=== PATIENT | male | born 1945 | race Caucasian/White ===

== ENCOUNTER 2022-02-03 20:08 | Emergency (ER) | payer OTHER ==
[2022-02-03] MEDS ORDERED: HYDROCODONE/APAP 7.5/325 MG TAB ONE (22:45)
--- NOTE | 2022-02-03 23:54 | ER ---
Nurse's Notes [facility] Name: Sean Pedro Age: 76 yrs Sex: Male : 1945 Arrival Date: 02/03/2022 Time: 20:14 Bed 20 Private MD: Diagnosis: Pain in right knee Presentation: 02/03 20:48 Chief complaint: Patient states: Pt reports he stepped up into his tractor, twisted his kb3 right knee and felt a popping sensation at approximately 1900 tonight. PT reports he is unable to bear weight. Coronavirus screen: Vaccine status: Patient reports being unvaccinated. Ebola Screen: Patient negative for fever greater than or equal to 101.5 degrees Fahrenheit, and additional compatible Ebola Virus Disease symptoms Patient denies exposure to infectious person. Patient denies travel to an Ebola-affected area in the 21 days before illness onset. No symptoms or risks identified at this time. Initial Sepsis Screen: Does the patient meet any 2 criteria? No. Patient's initial sepsis screen is negative. Does the patient have a suspected source of infection? No. Patient's initial sepsis screen is negative. Risk Assessment: Do you want to hurt yourself or someone else? Patient reports no desire to harm self or others. Onset of symptoms was February 03, 2022 at 19:00. 20:48 Method Of Arrival: Wheelchair kb3 20:48 Acuity: BRODIE 4 kb3 Triage Assessment: 20:51 General: Appears in no apparent distress. uncomfortable, Behavior is calm, cooperative. kb3 Pain: Complains of pain in posterior aspect of right knee. Historical: - Allergies: 20:51 No Known Allergies; kb3 - Immunization history:: Adult Immunizations up to date, Client reports having NOT received the Covid vaccine. Last tetanus immunization: up to date. - Social history:: Smoking status: Patient denies any tobacco usage or history of. Screenin/23 00:19 Abuse screen: Denies threats or abuse. Nutritional screening: No deficits noted. ll3 Tuberculosis screening: No symptoms or risk factors identified. Fall Risk None identified. Assessment: 02/03 22:30 General: Appears uncomfortable, Behavior is calm, cooperative. Pain: Complains of pain ll3 in posterior aspect of right knee Pain currently is 9 out of 10 on a pain scale. Neuro: Level of Consciousness is awake, alert, obeys commands, Oriented to person, place, time, situation. Respiratory: Respiratory effort is even, unlabored, Respiratory pattern is regular, symmetrical. Derm: Skin is pink, warm \T\ dry. Musculoskeletal: Reports pain in posterior aspect of right knee. 23:50 Reassessment: No changes from previously documented assessment. Patient and/or family ll3 updated on plan of care and expected duration. Pain level reassessed. Patient is alert, oriented x 3, equal unlabored respirations, skin warm/dry/pink. Vital Signs: 20:48 BP 116 / 74; Pulse 59; Resp 19; Temp 98; Pulse Ox 98% ; Weight 110.22 kg; Height 5 ft. kb3 10 in. (177.80 cm); Pain 10/10; 23:50 BP 111 / 58; Pulse 58; Resp 17; Pulse Ox 98% ; ll3 23:50 BP 111 / 58; Pulse 56; Resp 18; Pulse Ox 98% on R/A; ll3 20:48 Body Mass Index 34.87 (110.22 kg, 177.80 cm) kb3 ED Course: 20:14 Patient arrived in ED. ja2 20:51 Triage completed. kb3 20:51 Arm band placed on right wrist. kb3 21:04 Perez Vergara PA is PHCP. cp 21:04 Perez Herman MD is Attending Physician. cp 22:38 Kwasi Muñoz, FELISA is Primary Nurse. ll3 23:00 XRAY Pelvis In Process Unspecified. EDMS 23:01 XRAY Femur RIGHT In Process Unspecified. EDMS 23:01 XRAY Tib Fib RIGHT In Process Unspecified. EDMS 23:53 Haseeb Da Silva MD is Referral Physician. cp 02/04 00:19 Patient has correct armband on for positive identification. Placed in gown. Bed in low ll3 position. Call light in reach. Side rails up X 1. Adult w/ patient. 00:19 No provider procedures requiring assistance completed. Patient did not have IV access ll3 during this emergency room visit. Administered Medications: 02/03 22:38 Drug: Hydrocodone-Acetaminophen (7.5 mg-325 mg) 1 tabs Route: PO; ll3 23:50 Follow up: BP 111 / 58; Pulse 58 bpm; Resp 17 bpm; Pulse Ox 98% ; Response: No adverse ll3 reaction; Pain is decreased Medication: 02/04 00:20 VIS not applicable for this client. ll3 Outcome: 02/03 23:53 Discharge ordered by . catia 02/04 00:18 Patient left the ED. mw2 00:19 Discharged to home via wheelchair, with crutches. ll3 00:19 Condition: stable 00:19 Discharge instructions given to patient, family, Instructed on discharge instructions, follow up and referral plans. medication usage, Demonstrated understanding of instructions, follow-up care, medications, Prescriptions given X 1. Signatures: Dispatcher [employer] EDMS Perez Vergara PA PA cp [place], MyKena mw2 Venus Kang Lynsea RN RN ll3 Laura Rm, FELISA RN kb3
--- NOTE | 2022-02-03 23:54 | EDPHYS ---
Physician Documentation [facility] Name: Sean Pedro Age: 76 yrs Sex: Male : 1945 Arrival Date: 02/03/2022 Time: 20:14 Bed 20 Private MD: ED Physician Perez Herman HPI: 02/03 22:20 This 76 yrs old Male presents to ER via Wheelchair with complaints of Leg Pain. cp 22:20 The patient presents with an injury, pain, that is acute. The complaints affect the cp lateral aspect of right knee. Context: resulted from the patient falling, while stepping up onto tractor, the patient is not able to bear weight, must have assistance, Problem is a result from a previous injury: No. 22:20 Onset: The symptoms/episode began/occurred today. cp 22:20 Associated signs and symptoms: Pertinent positives: weakness, of the right knee, cp Pertinent negatives fever, numbness. Treatment prior to arrival includes: no previous treatment. 22:20 Patient reports feeling right knee "pop" and has been unable to bear weight. cp Historical: - Allergies: 20:51 No Known Allergies; kb3 - Immunization history:: Adult Immunizations up to date, Client reports having NOT received the Covid vaccine. Last tetanus immunization: up to date. - Social history:: Smoking status: Patient denies any tobacco usage or history of. ROS: 22:25 Cardiovascular: Negative for chest pain, edema, palpitations. cp 22:25 Respiratory: Negative for cough, shortness of breath, wheezing. 22:25 MS/extremity: Positive for pain, tenderness, of the lateral aspect of right knee, Negative for deformity, paresthesias. 22:25 Constitutional: Negative for body aches, chills, fever, poor PO intake. cp 22:25 Neck: Negative for pain with movement, pain at rest, stiffness. 22:25 Back: Negative for pain at rest, pain with movement, radiated pain. 22:25 Neuro: Negative for altered mental status, headache, numbness, weakness. 22:25 All other systems are negative. cp Exam: 22:30 Constitutional: The patient appears in no acute distress, alert, awake, non-toxic, well cp developed, well nourished, obese. 22:30 Head/Face: Normocephalic, atraumatic. cp 22:30 Neck: ROM/movement: is normal, is supple, without pain, no range of motions limitations.cp 22:30 Chest/axilla: Inspection: normal. 22:30 Cardiovascular: Rate: bradycardic, Rhythm: regular. 22:30 Respiratory: the patient does not display signs of respiratory distress, Respirations: normal, no use of accessory muscles, no retractions, labored breathing, is not present. 22:30 Abdomen/GI: Exam negative for discomfort, distension, guarding, Inspection: abdomen appears normal. 22:30 Back: pain, is absent, ROM is normal. 22:30 Musculoskeletal/extremity: Extremities: noted in the right leg: pain, tenderness to palpation lateral aspect right knee, no ligament laxity noted with ROM, pain with passive ROM, mild tenderness to palpation noted lateral right hip and lower right leg, the right leg Sensation intact. 22:30 Neuro: Orientation: to person, place \\T\\ time. Mentation: is normal, Motor: moves all cp fours, strength is normal. Vital Signs: 20:48 BP 116 / 74; Pulse 59; Resp 19; Temp 98; Pulse Ox 98% ; Weight 110.22 kg; Height 5 ft. kb3 10 in. (177.80 cm); Pain 10/10; 23:50 BP 111 / 58; Pulse 58; Resp 17; Pulse Ox 98% ; ll3 23:50 BP 111 / 58; Pulse 56; Resp 18; Pulse Ox 98% on R/A; ll3 20:48 Body Mass Index 34.87 (110.22 kg, 177.80 cm) kb3 Procedures: 23:55 Splinting: Splint applied to right leg using knee immobilizer, applied by nurse. cp Examined by me, post splint application: neurovascular intact, Patient tolerated well. MDM: 22:04 Patient medically screened. cp 23:53 Data reviewed: vital signs, nurses notes, radiologic studies, plain films. cp 23:53 Differential diagnosis: dislocation, open fracture, closed fracture, contusion, cp ligament rupture. Test interpretation: by ED physician or midlevel provider: plain radiologic studies. Counseling: I had a detailed discussion with the patient and/or guardian regarding: the historical points, exam findings, and any diagnostic results supporting the discharge/admit diagnosis, radiology results, the need for outpatient follow up, for definitive care, a orthopedic surgeon, to return to the emergency department if symptoms worsen or persist or if there are any questions or concerns that arise at home. Response to treatment: the patient's symptoms have markedly improved after treatment, and as a result, I will discharge patient. 02/03 22:16 Order name: XRAY Pelvis cp 02/03 22:16 Order name: XRAY Femur RIGHT cp 02/03 22:16 Order name: XRAY Tib Fib RIGHT cp 02/03 23:44 Order name: Crutches; Complete Time: 00:19 cp 02/03 23:45 Order name: Knee Immobilizer; Complete Time: 00:19 cp Administered Medications: 22:38 Drug: Hydrocodone-Acetaminophen (7.5 mg-325 mg) 1 tabs Route: PO; ll3 23:50 Follow up: BP 111 / 58; Pulse 58 bpm; Resp 17 bpm; Pulse Ox 98% ; Response: No adverse ll3 reaction; Pain is decreased Disposition Summary: 02/03/22 23:53 Discharge Ordered Location: Home cp Problem: new cp Symptoms: have improved cp Condition: Stable cp Diagnosis - Pain in right knee cp Followup: cp - With: Haseeb Da Silva MD - When: 2 - 3 days - Reason: Recheck today's complaints Discharge Instructions: - Discharge Summary Sheet cp - How to Use a Knee Immobilizer cp - Acute Knee Pain, Adult cp Forms: - Medication Reconciliation Form cp - Thank You Letter cp - Antibiotic Education cp - Prescription Opioid Use cp Prescriptions: - Ibuprofen 800 mg Oral Tablet - take 1 tablet by ORAL route every 8 hours As needed take with food; 30 tablet; cp Refills: 0, Product Selection Permitted Signatures: Dispatcher [facility] Perez Vergara PA PA cp Kwasi Muñoz, RN RN ll3 Laura Rm, RN RN kb3 Corrections: (The following items were deleted from the chart) 23:49 22:20 Context: resulted from the patient falling, cp cp 23:53 22:20 Context: resulted from the patient falling, while stepping up onto tractor, the cp patient can partially bear weight, the patient is able to ambulate, with moderate difficulty, Problem is a result from a previous injury: No. cp 02/04 21:31 02/03 23:05 Splinting: Splint applied to right leg using knee immobilizer, applied by cp nurse. Examined by me, post splint application: neurovascular intact, Patient tolerated well, cp
[2022-02-04 02:50] VITALS: TEMP 98; O2SAT 98
[2022-02-04 02:56] VITALS: BP 111/58
--- NOTE | 2022-02-04 12:51 | RAD REPORT ---
EXAM DESCRIPTION: RAD - Tib Fib Right - 02/03/2022 10:59 pm CLINICAL HISTORY: 76 years Male, PAIN COMPARISON: None. FINDINGS: No evidence of an acute fracture of the right femur or right tibia-fibula. No dislocation. Degenerative medial joint space narrowing of the knee noted with mild osteophyte formation. Small gomez bcortical lucency in the medial femoral condyle demonstrated. There is suggestion of ankle soft tissue swelling. Linear nonspecific calcific density projecting bet ween the proximal tibial and fibular diaphyses demonstrated. IMPRESSION: 1. No evidence of an acute fracture of the right femur or right tibia/fibula. 2. Degenerative changes of the right knee with medial joint space narrowing. Small subcortical lucenc y in the medial femoral condyle may represent an osteochondral defect. Electronically signed by: Leo Lee MD 02/03/2022 11:42 PM CDT Due to temporary technical issues with the PACS/Fluency reporting system, reports are being signed by the in house radiologists without review as a courtesy to insure prompt reporting. The interpreting radiologist is fully responsible for the content of the report
--- NOTE | 2022-02-04 13:01 | RAD REPORT ---
EXAM DESCRIPTION: RAD - Femur Right - 02/03/2022 10:59 pm CLINICAL HISTORY: 76 years Male, PAIN COMPARISON: None. FINDINGS: No evidence of an acute fracture of the right femur or right tibia-fibula. No dislocation. Degenerative medial joint space narrowing of the knee noted with mild osteophyte formation. Small gomez bcortical lucency in the medial femoral condyle demonstrated. There is suggestion of ankle soft tissue swelling. Linear nonspecific calcific density projecting bet ween the proximal tibial and fibular diaphyses demonstrated. IMPRESSION: 1. No evidence of an acute fracture of the right femur or right tibia/fibula. 2. Degenerative changes of the right knee with medial joint space narrowing. Small subcortical lucenc y in the medial femoral condyle may represent an osteochondral defect. Electronically signed by: Leo Lee MD 02/03/2022 11:42 PM CDT Due to temporary technical issues with the PACS/Fluency reporting system, reports are being signed by the in house radiologists without review as a courtesy to insure prompt reporting. The interpreting radiologist is fully responsible for the content of the report
--- NOTE | 2022-02-04 13:04 | RAD REPORT ---
EXAM DESCRIPTION: RAD - Pelvis - 02/03/2022 10:59 pm CLINICAL HISTORY: 76 years Male fall COMPARISON: None TECHNIQUE: AP view of the pelvis was obtained. FINDINGS: No fractures seen. Normal bony mineralization. No erosive or lytic lesions seen. IMPRESSION: No acute fracture or dislocation seen. Electronically signed by: Becky Cabezas MD 02/03/2022 11:31 PM CDT Due to temporary technical issues with the PACS/Fluency reporting system, reports are being signed by the in house radiologists without review as a courtesy to insure prompt reporting. The interpreting radiologist is fully responsible for the content of the report
== END 2022-02-04 00:18 | disposition home or self-care (01) ==
LOC: ER 20:08
DX: M25.561 Pain in right knee (principal)
CPT/HCPCS: 72170; 99283

== ENCOUNTER 2024-05-30 14:30 | Emergency (ER) | payer OTHER ==
[2024-05-30] MEDS ORDERED: FENTANYL CITR 100 MCG/2 ML ONE ×2 (14:42→16:50)
--- NOTE | 2024-05-30 16:45 | RAD REPORT ---
EXAMINATION: ONE VIEW CHEST XR CLINICAL INDICATION: Male, 78 years old.,fall TECHNIQUE: Frontal chest projection is submitted. Examination is limited by patient positioning and t echnique. COMPARISON: 09/18/2014 FINDINGS: Elevation of the left hemidiaphragm again seen. The lungs are well inflated otherwise. Interstitial c oarsening bilaterally. No focal airspace opacities. No pneumothorax or sizable effusion. The heart is normal in size. Mediastinal contours are unremarkable.Displaced proximal humeral fracture, not wel l visualized. IMPRESSION: Chronic appearing interstitial coarsening, could relate to fibrocystic changes. Displaced proximal humeral fracture, not well visualized.
--- NOTE | 2024-05-30 16:47 | RAD REPORT ---
EXAMINATION: XR LEFT HUMERUS HISTORY: fall;Pain RIGHT TECHNIQUE: Multiple views of the right humerus were obtained. COMPARISON: None FINDINGS: Displaced and somewhat impacted humeral neck fracture, with less than one shaft width poste rior and medial displacement of the distal fragment. Mild AC joint degenerative changes.
--- NOTE | 2024-05-30 16:55 | EDPHYS ---
Physician Documentation [facility] Name: Sean Pedro Age: 78 yrs Sex: Male : 1945 Arrival Date: 05/30/2024 Time: 14:30 Bed 19 Private MD: ED Physician Bernard Mason HPI: 05/30 14:45 This 78 yrs old Male presents to ER via EMS with complaints of Fall Injury, Arm Pain. cp 14:45 Details of fall: The patient fell from an upright position, while walking, and struck dirt. Onset: The symptoms/episode began/occurred just prior to arrival. Associated injuries: The patient sustained right upper arm, decreased range of motion, deformity, painful injury. Severity of symptoms: in the emergency department the symptoms have improved, mildly. Historical: - Allergies: 14:37 No Known Allergies; ss - Immunization history:: Client reports having NOT received the Covid vaccine. - Infectious Disease History:: Denies. - Social history:: Smoking status: Patient denies any tobacco usage or history of. ROS: 14:50 Constitutional: Negative for body aches, chills, fever, poor PO intake, cp 14:50 Eyes: Negative for injury, pain, redness, and discharge, cp 14:50 Neck: Negative for pain with movement, pain at rest, stiffness, 14:50 Cardiovascular: Negative for chest pain, palpitations, 14:50 Respiratory: Negative for cough, shortness of breath, wheezing, 14:50 Abdomen/GI: Negative for abdominal pain, vomiting, diarrhea, constipation, 14:50 Back: Negative for pain at rest, pain with movement, 14:50 MS/extremity: Positive for decreased range of motion, deformity, pain, of the right shoulder and right upper arm, Negative for paresthesias, 14:50 All other systems are negative, Exam: 14:55 Constitutional: The patient appears in no acute distress, alert, awake, cp non-diaphoretic, non-toxic, well developed, well nourished, obese, uncomfortable, 14:55 Head/Face: Normocephalic, atraumatic. cp 14:55 Neck: C-spine: vertebral tenderness, is not appreciated, crepitus, is not appreciated, ROM/movement: is normal, is supple, without pain, no range of motions limitations, 14:55 Chest/axilla: Inspection: normal, Palpation: is normal, no crepitus, no tenderness, 14:55 Cardiovascular: Rate: normal, Pulses: Pulses are 2+ in right radial artery. 14:55 Respiratory: the patient does not display signs of respiratory distress, Respirations: normal, no use of accessory muscles, no retractions, labored breathing, is not present, Breath sounds: are clear throughout, no decreased breath sounds, no stridor, no wheezing, 14:55 Abdomen/GI: Inspection: abdomen appears normal, Palpation: abdomen is soft and non-tender, in all quadrants, 14:55 Back: pain, is absent, ROM is normal, vertebral tenderness, is not appreciated, 14:55 Musculoskeletal/extremity: Extremities: noted in the right shoulder and right upper arm: decreased ROM, deformity, pain, swelling, tenderness, no pain, tenderness and/or ROM restriction of right elbow and right wrist, 14:55 Neuro: Orientation: to person, place \T\ time. Mentation: is normal, Vital Signs: 14:35 BP 118 / 52; Pulse 63; Resp 18; Temp 98.4(O); Pulse Ox 98% on R/A; Weight 117.93 kg; ss Height 5 ft. 10 in. ; Pain 6/10; 15:25 BP 116 / 52; Pulse 63; Resp 16 S; Pulse Ox 99% on R/A; kc6 16:18 BP 114 / 54; Pulse 65; Resp 17 S; Pulse Ox 99% on R/A; kc6 17:13 BP 127 / 50; Pulse 70; Resp 18 S; Pulse Ox 98% on R/A; kc6 14:35 Body Mass Index 37.31 (117.93 kg, 177.8 cm) ss 14:35 Pain Scale: Adult ss Procedures: 17:00 Splinting: Splint applied to right shoulder using sling, applied by nurse. Examined by cp me, post splint application: neurovascular intact, Patient tolerated well. MDM: 14:36 Medical Screening Exam initiated cp 15:00 Differential diagnosis: closed head injury, contusion, fracture, multiple trauma, cp dislocation. 16:55 Data reviewed: vital signs, nurses notes, radiologic studies, plain films, and as a cp result, I will discharge patient. 16:55 I considered the following discharge prescriptions or medication management in the cp emergency department Medications were administered in the Emergency Department. See MAR. Care significantly affected by the following chronic conditions: Obesity. Counseling: I had a detailed discussion with the patient and/or guardian regarding the historical points, exam findings, and any diagnostic results supporting the discharge/admit diagnosis, radiology results, the need for outpatient follow up, a orthopedic surgeon, to return to the emergency department if symptoms worsen or persist or if there are any questions or concerns that arise at home. Response to treatment: the patient's symptoms have mildly improved after treatment, and as a result, I will discharge patient. 05/30 14:37 Order name: XRAY Chest (1 view); Complete Time: 16:48 cp 05/30 14:37 Order name: XRAY Humerus RIGHT; Complete Time: 16:48 cp 05/30 16:48 Interpretation: Report reviewed. cp 05/30 15:46 Order name: Sling; Complete Time: 16:00 cp Administered Medications: 14:51 Drug: fentaNYL (PF) IVP 25 mcg IVP once Route: IVP; Site: left hand; kc6 15:31 Follow up: Response: No adverse reaction; Pain is unchanged, physician notified; RASS: kc6 Alert and Calm (0) 15:31 Drug: fentaNYL (PF) IVP 25 mcg IVP once Route: IVP; Site: left hand; kc6 15:48 Follow up: Response: No adverse reaction; RASS: Alert and Calm (0) kc6 16:55 Drug: fentaNYL (PF) IVP 50 mcg IVP once Route: IVP; Site: left wrist; kc6 17:13 Follow up: Response: No adverse reaction; Pain is decreased; RASS: Alert and Calm (0) kc6 Disposition: 18:12 Co-signature as Attending Physician, Bernard Mason MD I reviewed the patient's care rn provided by the Advanced Practice Provider and agree with the diagnosis and treatment plan. Disposition Summary: 05/30/24 16:55 Discharge Ordered Notes: Location: Home cp Problem: new cp Symptoms: have improved cp Condition: Stable cp Diagnosis - Fracture of upper end of humerus - right cp Followup: cp - With: Haseeb Da Silva MD - When: 2 - 3 days - Reason: Recheck today's complaints Discharge Instructions: - Discharge Summary Sheet cp - Humerus Fracture Treated With Immobilization, [id number] cp Forms: - Medication Reconciliation Form cp - Antibiotic Education cp - Prescription Opioid Use cp - Patient Portal Instructions cp - Leadership Thank You Letter cp Prescriptions: - acetaminophen-codeine 300-30 mg Oral tablet - take 2 tablet ORAL route every 8-12 hours as needed for pain; 20 tablet; cp Refills: 0, Product Selection Permitted - Celebrex 200 mg Oral capsule - take 1 capsule ORAL route every 12 hours As needed take with food; 30 capsule; cp Refills: 0, Product Selection Permitted Signatures: Dispatcher [employer] EDMS Bernard Mason MD MD rn Blanchard, Shelby, RN RN ss Perez Vergara PA PA Anali Hammond RN RN kc6 Corrections: (The following items were deleted from the chart) 05/31 14:17 14:14 Constitutional: The patient appears in no acute distress, alert, awake, cp non-diaphoretic, non-toxic, well developed, well nourished, obese, uncomfortable, cp
--- NOTE | 2024-05-30 16:55 | ER ---
Nurse's Notes [facility] Name: Sean Pedro Age: 78 yrs Sex: Male : 1945 Arrival Date: 05/30/2024 Time: 14:30 Bed 19 Private MD: Diagnosis: Fracture of upper end of humerus-right Presentation: 05/30 14:35 Chief complaint: Patient states: R upper arm and shoulder pain after tripping over a metal delfino just prior to arrival. Coronavirus screen: Client denies travel out of the [place] in the last 14 days. Ebola Screen: Patient denies exposure to infectious person. Patient denies travel to an Ebola-affected area in the 21 days before illness onset. Initial Sepsis Screen: Does the patient meet any 2 criteria? No. Patient's initial sepsis screen is negative. Does the patient have a suspected source of infection? No. Patient's initial sepsis screen is negative. Risk Assessment: Do you want to hurt yourself or someone else? Patient reports no desire to harm self or others. Onset of symptoms was May 30, 2024. 14:35 Method Of Arrival: EMS: [facility] 14:35 Acuity: BRODIE 3 14:38 Care prior to arrival: IV initiated. 18 GA, in the left hand. ss Historical: - Allergies: 14:37 No Known Allergies; ss - Immunization history:: Client reports having NOT received the Covid vaccine. - Infectious Disease History:: Denies. - Social history:: Smoking status: Patient denies any tobacco usage or history of. Screenin:37 [facility] ED Fall Risk Assessment (Adult) History of falling in the last 3 months, kc6 including since admission Yes- single mechanical fall (1 pt) Confusion or Disorientation No (0 pts) Intoxicated or Sedated No (0 pts) Impaired Gait No (0 pts) Mobility Assist Device Used No (0 pt) Altered Elimination No (0 pt) Score/Fall Risk Level 0 - 2 = Low Risk Oriented to surroundings, Maintained a safe environment, Educated pt \T\ family on fall prevention, incl call for assistance when getting out of bed. Abuse screen: Denies threats or abuse. Denies injuries from another. Nutritional screening: No deficits noted. Tuberculosis screening: No symptoms or risk factors identified. Assessment: 14:37 General: Appears in no apparent distress. uncomfortable, well groomed, well developed, kc6 Behavior is calm, cooperative, appropriate for age. Pain: Complains of pain in anterior aspect of right shoulder and right bicep Pain currently is 6 out of 10 on a pain scale. Pain began suddenly. Neuro: Level of Consciousness is awake, alert, obeys commands, Oriented to person, place, time, situation, Appropriate for age. Cardiovascular: Capillary refill < 3 seconds. Respiratory: Airway is patent Trachea midline Respiratory effort is even, unlabored, Respiratory pattern is regular, symmetrical. GI: No signs and/or symptoms were reported involving the gastrointestinal system. : No signs and/or symptoms were reported regarding the genitourinary system. EENT: No signs and/or symptoms were reported regarding the EENT system. Derm: No signs and/or symptoms reported regarding the dermatologic system. Skin is intact, is healthy with good turgor, Skin is pink, warm \T\ dry. Musculoskeletal: Capillary refill < 3 seconds, Range of motion: limited in right shoulder Swelling present in anterior aspect of right shoulder and right bicep. 15:37 Reassessment: Patient appears in no apparent distress at this time. No changes from kc6 previously documented assessment. Patient and/or family updated on plan of care and expected duration. Pain level reassessed. Patient is alert, oriented x 3, equal unlabored respirations, skin warm/dry/pink. 17:13 Reassessment: Patient appears in no apparent distress at this time. No changes from kc6 previously documented assessment. Patient and/or family updated on plan of care and expected duration. Pain level reassessed. Patient is alert, oriented x 3, equal unlabored respirations, skin warm/dry/pink. Patient states feeling better. Patient states symptoms have improved. Vital Signs: 14:35 BP 118 / 52; Pulse 63; Resp 18; Temp 98.4(O); Pulse Ox 98% on R/A; Weight 117.93 kg; ss Height 5 ft. 10 in. ; Pain 6/10; 15:25 BP 116 / 52; Pulse 63; Resp 16 S; Pulse Ox 99% on R/A; kc6 16:18 BP 114 / 54; Pulse 65; Resp 17 S; Pulse Ox 99% on R/A; kc6 17:13 BP 127 / 50; Pulse 70; Resp 18 S; Pulse Ox 98% on R/A; kc6 14:35 Body Mass Index 37.31 (117.93 kg, 177.8 cm) ss 14:35 Pain Scale: Adult ss ED Course: 14:35 Patient arrived in ED. ss 14:36 Perez Vergara PA is PHCP. cp 14:36 Bernard Mason MD is Attending Physician. cp 14:36 Anali Eaton RN is Primary Nurse. kc6 14:37 Triage completed. ss 14:37 Patient has correct armband on for positive identification. Placed in gown. Bed in low kc6 position. Call light in reach. Side rails up X2. Adult w/ patient. Pulse ox on. NIBP on. Door closed. Noise minimized. Lights dimmed. Warm blanket given. Pillow given. 14:37 Arm band placed on left wrist. ss 14:37 Maintain EMS IV. Dressing intact. Good blood return noted. Site clean \T\ dry. Gauge \T\ emmy 6 site: 18G LHAND. Flushed with 10 mL NS. Patient maintains SpO2 saturation greater than 95% on room air. 15:25 Assisted with urinal. Repositioned patient. kc6 15:26 XRAY Chest (1 view) In Process Unspecified. EDMS 15:26 XRAY Humerus RIGHT In Process Unspecified. EDMS 16:00 Clavicle/Shoulder strap applied on right clavicle/shoulder. kc6 16:46 Patient requests pain medication. kc6 16:52 Haseeb Da Silva MD is Referral Physician. cp 17:14 No provider procedures requiring assistance completed. IV discontinued, intact, kc6 bleeding controlled, No redness/swelling at site. Pressure dressing applied. Administered Medications: 14:51 Drug: fentaNYL (PF) IVP 25 mcg IVP once Route: IVP; Site: left hand; kc6 15:31 Follow up: Response: No adverse reaction; Pain is unchanged, physician notified; RASS: kc6 Alert and Calm (0) 15:31 Drug: fentaNYL (PF) IVP 25 mcg IVP once Route: IVP; Site: left hand; kc6 15:48 Follow up: Response: No adverse reaction; RASS: Alert and Calm (0) kc6 16:55 Drug: fentaNYL (PF) IVP 50 mcg IVP once Route: IVP; Site: left wrist; kc6 17:13 Follow up: Response: No adverse reaction; Pain is decreased; RASS: Alert and Calm (0) kc6 Medication: 17:16 VIS not applicable for this client. kc6 Outcome: 16:55 Discharge ordered by . cp 17:15 Discharged to home ambulatory, with family, kc6 17:15 Condition: good 17:15 Discharge instructions given to patient, family, Instructed on discharge instructions, follow up and referral plans. no drinking with medication, no driving heavy equipment, medication usage, Demonstrated understanding of instructions, follow-up care, medications, Prescriptions given X 2, 17:16 Patient left the ED. kc6 Signatures: Dispatcher [employer] EDZeina Will RN RN Perez Mendenhall, PA Anali Fong cp, RN RN kc6
[2024-05-30 18:49] VITALS: BP 127/50; TEMP 98.4; O2SAT 98
== END 2024-05-30 17:16 | disposition home or self-care (01) ==
LOC: ER 14:30
DX: S42.201A Unspecified fracture of upper end of right humerus, initial encounter for closed fracture (principal); W18.30XA Fall on same level, unspecified, initial encounter
CPT/HCPCS: 71045; 73060; 99284; J3010 ×2